=== PATIENT | male | born 1985 | race Caucasian/White ===

== ENCOUNTER 2017-10-26 08:33 | Emergency (ER) | payer BC ==
[~2017-10-26] VITALS: Ht 182.9 cm; Wt 104.3 kg
[~2017-10-26 08:33] MED LIST: Keflex500 MG PO
[2017-10-26] MEDS ORDERED: LISI5 PO (08:45)
[2017-10-26] MEDS ORDERED: Amoxicillin500 MG PO (09:14)
[2017-10-26] MEDS ORDERED: IBUP800 PO (09:14)
[2017-10-26] MEDS ORDERED: NYST237S PO (09:14)
[2018-08-17] MEDS ORDERED: Norco 5-325 Ta1 EACH PO (10:24)
== END 2017-10-26 09:17 | disposition home or self-care (01) ==
LOC: ER 08:33
DX: K02.9 Dental caries, unspecified (principal); K03.81 Cracked tooth; I10 Essential (primary) hypertension; F17.210 Nicotine dependence, cigarettes, uncomplicated; Z79.899 Other long term (current) drug therapy
CPT/HCPCS: 99283

== ENCOUNTER 2018-12-11 17:29 | Emergency (ER) | payer OTHER ==
[~2018-12-11] VITALS: Ht 185.4 cm; Wt 108.9 kg
[~2018-12-11 17:29] MED LIST changes: +Amoxicillin500 MG PO; +IBUP800 PO; +LISI5 PO; +NYST237S PO; +Norco 5-325 Ta1 EACH PO
[2018-12-11] MEDS ORDERED: Cleocin HCl300 MG PO (18:57)
== END 2018-12-11 19:24 | disposition home or self-care (01) ==
LOC: ER 17:29
DX: L02.413 Cutaneous abscess of right upper limb (principal); F17.200 Nicotine dependence, unspecified, uncomplicated
CPT/HCPCS: 10060; 99282-25

== ENCOUNTER 2019-01-18 21:39 | Emergency (ER) | payer OTHER ==
[~2019-01-18] VITALS: Ht 185.4 cm; Wt 113.4 kg
[~2019-01-18 21:39] MED LIST changes: +Cleocin HCl300 MG PO
[2019-01-18] MEDS ORDERED: SUBOXONE (21:54)
[2019-01-18] MEDS ORDERED: CEPH500 PO (23:02)
== END 2019-01-18 23:10 | disposition home or self-care (01) ==
LOC: ER 21:39
DX: S61.412A Laceration without foreign body of left hand, initial encounter (principal); F17.210 Nicotine dependence, cigarettes, uncomplicated; Z79.899 Other long term (current) drug therapy; W08.XXXA Fall from other furniture, initial encounter
CPT/HCPCS: 12002; 99282-25

== ENCOUNTER 2019-03-31 17:03 | Inpatient (IN) | payer OTHER ==
[~2019-03-31] VITALS: Ht 185.4 cm; Wt 105.2 kg
[~2019-03-31 17:03] MED LIST changes: +CEPH500 PO; +SUBOXONE
[2019-03-31 17:35] LABS: BASOPHILS ABSOLUTE AUTO 0.08 K/mm3 (0.00-0.23); BASOPHILS PERCENT AUTO 1 % (0-2); EOSINOPHILS ABSOLUTE AUTO 0.22 K/mm3 (0.00-0.68); EOSINOPHILS PERCENT AUTO 1 % (0-6); Hematocrit 38.8 % (37.0-53.0); Hemoglobin 12.9 g/dL (13.5-17.5); IMMATURE GRAN ABSOLUTE AUTO 0.07 K/mm3 (0.00-0.10); IMMATURE GRAN PERCENT AUTO 0 % (0-1); LYMPHOCYTES ABSOLUTE AUTO 2.73 K/mm3 (0.84-5.20); LYMPHOCYTES PERCENT AUTO 17 % (21-46); MONOCYTES ABSOLUTE AUTO 1.38 K/mm3 (0.16-1.47); MONOCYTES PERCENT AUTO 9 % (4-13); Mean Corpuscular HGB 29.4 pg (26.0-34.0); Mean Corpuscular HGB Conc 33.2 g/dL (31.5-36.5); Mean Corpuscular Volume 88 fL (80-100); NEUTROPHILS ABSOLUTE AUTO 11.56 K/mm3 (1.96-9.15); NEUTROPHILS PERCENT AUTO 72 % (41-73); Platelet Count 344 K/mm3 (150-400); RDW Coefficient Variation 12.2 % (11.7-14.2); RDW Standard Deviation 39.8 fL (35.1-46.3); Red Blood Cell Count 4.39 M/mm3 (4.30-5.90); White Blood Cell Count 16.04 K/mm3 (4.00-11.30)
[2019-03-31 17:54] LABS: Alanine Aminotransfer (ALT/SGP 28 U/L (12-78); Albumin, Blood 3.9 g/dL (3.4-5.0); Alk Phos 106 U/L (50-136); Anion Gap 7 mmol/L (6-16); Aspartate Aminotrans (AST/SGOT 20 U/L (12-37); Bilirubin, Total 0.8 mg/dL (0.1-1.0); Blood Urea Nitrogen 9 mg/dL (8-24); Bun/Creatinine Ratio 13.8 (12.0-20.0); CO2, Blood 27 mmol/L (21-32); Calcium, Blood 9.6 mg/dL (8.5-10.1); Chloride, Blood 100 mmol/L (98-108); Creatinine, Blood 0.65 mg/dL (0.60-1.20); Globulin, Blood 3.8 g/dL (2.2-4.0); Glomerular Filtration Rate >60 (60-); Glucose, Blood 99 mg/dL (70-99); Potassium, Blood 3.2 mmol/L (3.5-5.5); Sodium, Blood 134 mmol/L (136-145); Total Protein, Blood 7.7 g/dL (6.4-8.2)
[2019-04-01 04:56] LABS: BASOPHILS ABSOLUTE AUTO 0.05 K/mm3 (0.00-0.23); BASOPHILS PERCENT AUTO 0 % (0-2); EOSINOPHILS ABSOLUTE AUTO 0.27 K/mm3 (0.00-0.68); EOSINOPHILS PERCENT AUTO 2 % (0-6); Hematocrit 35.9 % (37.0-53.0); Hemoglobin 11.9 g/dL (13.5-17.5); IMMATURE GRAN ABSOLUTE AUTO 0.05 K/mm3 (0.00-0.10); IMMATURE GRAN PERCENT AUTO 0 % (0-1); LYMPHOCYTES ABSOLUTE AUTO 2.68 K/mm3 (0.84-5.20); LYMPHOCYTES PERCENT AUTO 20 % (21-46); MONOCYTES ABSOLUTE AUTO 1.13 K/mm3 (0.16-1.47); MONOCYTES PERCENT AUTO 9 % (4-13); Mean Corpuscular HGB 29.6 pg (26.0-34.0); Mean Corpuscular HGB Conc 33.1 g/dL (31.5-36.5); Mean Corpuscular Volume 89 fL (80-100); Mean Platelet Volume 9.9 fL (9.1-12.4); NEUTROPHILS ABSOLUTE AUTO 9.06 K/mm3 (1.96-9.15); NEUTROPHILS PERCENT AUTO 69 % (41-73); Platelet Count 307 K/mm3 (150-400); RDW Coefficient Variation 12.3 % (11.7-14.2); RDW Standard Deviation 40.5 fL (35.1-46.3); Red Blood Cell Count 4.02 M/mm3 (4.30-5.90); White Blood Cell Count 13.24 K/mm3 (4.00-11.30)
--- NOTE | 2019-04-01 06:40 | NUR ---
SHIFT SUMMARY PT WAS A NEW ADMIT DURING THE NIGHT, ARRIVING ON THE FLOOR AT 2300. HE WAS ADMITTED FOR LLE CELLULITIS AFTER A DOG BITE. HE IS 34 Y/O, A&O X 4, AND ABLE TO AMBULATE INDEPENDENTLY TO THE BATHROOM. PT REPORTED PAIN IN HIS L LEG, AND WAS MEDICATED X2 WITH PRN FENTANYL. NO COMPLAINTS OF NAUSEA OR SOB. VITALS REMAINED STABLE. NO OTHER ACUTE CHANGES IN PT CONDITION NOTED. WILL CONTINUE TO MONITOR AND TREAT PER EMAR.
--- NOTE | 2019-04-01 07:40 | NUR ---
PT PLEASANT COOP A/O. STATES PAIN 9 AND WOULD BE OKAY WITH 5. STATES FENTANYL LAST ONLY SHORT TIME. DISCUSSED LONGER ACTING PO MEDS. HE AGREES IS BETTER. WILL DISCUSS WITH H/R GRAYSON, NO MURMER NOTED. NO TELE. LUNGS CLEAR, RESP EASY, UNLABORED. ON R.A. DISCUSSED QUITTING SMOKEING. NOT READY AT THIS TIME. BT X4 LAST BM YEST. VOIDS PER BATHROOM. INDEPENDANT IN ROOM. GOES OUT TO SMOKE REGULARLY. BED IN LOW POSITION, CALL LITE IN REACH, CALLS APPROP
[2019-04-01 07:42] LABS: Anion Gap 5 mmol/L (6-16); Blood Urea Nitrogen 10 mg/dL (8-24); Bun/Creatinine Ratio 14.1 (12.0-20.0); CO2, Blood 29 mmol/L (21-32); Calcium, Blood 8.5 mg/dL (8.5-10.1); Chloride, Blood 107 mmol/L (98-108); Creatinine, Blood 0.71 mg/dL (0.60-1.20); Glomerular Filtration Rate >60 (60-); Glucose, Blood 121 mg/dL (70-99); Magnesium, Blood 2.2 mg/dL (1.6-2.4); Potassium, Blood 3.5 mmol/L (3.5-5.5); Sodium, Blood 141 mmol/L (136-145)
--- NOTE | 2019-04-01 16:14 | NUR ---
PT PLEASANT TODAY. HAS LEFT NOTES ANY TIME OUT TO SMOKE. HAS BEEN HERE FOR MEDS REQUESTED. ALWAYS RESPECTFUL. NO OTHER CONCERNS AT THIS TIME. BED IN LOW POSITION, CALL LITE IN REACH, CALLS APPROP
[2019-04-01 22:19] LABS: Vancomycin, Trough 11.4 ug/mL (5.0-10.0)
[2019-04-02 05:28] LABS: BASOPHILS ABSOLUTE AUTO 0.09 K/mm3 (0.00-0.23); BASOPHILS PERCENT AUTO 1 % (0-2); EOSINOPHILS ABSOLUTE AUTO 0.34 K/mm3 (0.00-0.68); EOSINOPHILS PERCENT AUTO 2 % (0-6); Hematocrit 36.8 % (37.0-53.0); Hemoglobin 11.9 g/dL (13.5-17.5); IMMATURE GRAN ABSOLUTE AUTO 0.04 K/mm3 (0.00-0.10); IMMATURE GRAN PERCENT AUTO 0 % (0-1); LYMPHOCYTES ABSOLUTE AUTO 3.59 K/mm3 (0.84-5.20); LYMPHOCYTES PERCENT AUTO 25 % (21-46); MONOCYTES ABSOLUTE AUTO 0.94 K/mm3 (0.16-1.47); MONOCYTES PERCENT AUTO 7 % (4-13); Mean Corpuscular HGB Conc 32.3 g/dL (31.5-36.5); Mean Corpuscular Volume 90 fL (80-100); Mean Platelet Volume 10.3 fL (9.1-12.4); NEUTROPHILS ABSOLUTE AUTO 9.14 K/mm3 (1.96-9.15); NEUTROPHILS PERCENT AUTO 65 % (41-73); Platelet Count 347 K/mm3 (150-400); RDW Coefficient Variation 12.4 % (11.7-14.2); RDW Standard Deviation 40.8 fL (35.1-46.3); White Blood Cell Count 14.14 K/mm3 (4.00-11.30)
[2019-04-02 05:44] LABS: Anion Gap 7 mmol/L (6-16); Blood Urea Nitrogen 6 mg/dL (8-24); Bun/Creatinine Ratio 7.8 (12.0-20.0); CO2, Blood 27 mmol/L (21-32); Chloride, Blood 108 mmol/L (98-108); Creatinine, Blood 0.77 mg/dL (0.60-1.20); Glomerular Filtration Rate >60 (60-); Glucose, Blood 102 mg/dL (70-99); Potassium, Blood 3.7 mmol/L (3.5-5.5); Sodium, Blood 142 mmol/L (136-145)
--- NOTE | 2019-04-02 12:15 | NUR ---
UNABLE TO LOCATE PATIENT FOR ANTIBIOTIC ADMINISTRATION
--- NOTE | 2019-04-02 12:55 | NUR ---
UNABLE TO LOCATE PATIENT
--- NOTE | 2019-04-02 13:21 | NUR ---
UNABLE TO LOCATE PATIENT
--- NOTE | 2019-04-02 14:05 | NUR ---
PT RETURNED TO ROOM, SPOKE WITH DR. RAMOS THEN STATES "I HAVE TO GO TO MY CAR AND ABRUPTLY LEFT THE ROOM" STATES "I'LL BE BACK IN 15-20 MINS"
--- NOTE | 2019-04-02 18:41 | NUR ---
SHIFT SUMMARY [employer] INDEPENDENT. SPOKEN WITH ABOUT KEEPING VISITS OUTSIDE NOT LONGER THAN 45MINS. EATING WELL. VOMITING X1 THIS A.M. C/O PAIN TO LLE PO MEDS EFFECTIVE. AFEBRILE VSS.
[2019-04-02 22:00] LABS: Vancomycin, Trough 16.9 ug/mL (5.0-10.0)
--- NOTE | 2019-04-03 06:05 | NUR ---
SHIFT SUMMARY PT ADMITTED FOR SEPSIS. FULL CODE. REGULAR DIET. CELLULITIS TO L LEG THAT PT STATES STARTED AFTER A DOG BITE THAT OCCURRED 2 WEEKS AGO. PT ALSO HAS SWELLING AND DRAINAGE TO THE LEFT ELBOW THAT PT SATED HAPPENED AFTER A BEE STING. THE PT REPORTED THAT THE ELBOW DRAINED A VERY LARGE AMOUNTH OF GREENISH WHITE FLUID THAT HAD A BAD ODOR. THIS NURSE DID NOT WITNESS ANY DRAINAGE THE PT STATED THAT HE SQUEEZED IT WHILE IN THE BATHROOM. THE PT REPORTED THAT THE ELBOW FELT MUCH BETTER FOLLOWING THE DRAINAGE. 20G IV TO R FA. INDEPENDENT IN ROOM. TAKES MEDICATION WHOLE. PT DID VOMIT X2 YESTERDAY, CALL TO HOSPITALIST WHO GAVE ORDER FOR ZOFRAN, ADMINISTERED X1 AND PT STATED FEELING VERY RELIEVED. THE PT HAS APPEARED TO SLEEP COMFORTABLY MOST OF THE NIGHT WITH NO APPARENT SIGNS OF ACUTE DISTRESS. ABLE TO MAKE NEEDS KNOWN AND CALL LIGHT IN REACH.
--- NOTE | 2019-04-03 18:21 | NUR ---
NO ACUTE CHANGES TO PATIENT. HE CONTINUES TO GO OUT TO SMOKE AND GET HIS IV ABX ORDERED. HE IS FRIENDLY WITH STAFF AND COMPLIANT WITH ALL CARES. NO ISSUES THIS SHIFT.
--- NOTE | 2019-04-04 04:06 | NUR ---
SHIFT SUMMARY NO APPARENT ACUTE CHANGES NOTED SO FAR THIS SHIFT. PT STATED THAT LEFT ELBOW "EXPLODED" AGAIN AND BEGAN TO DRAIN. PT STATED NOT WANTING DRESSING ON AREA BECAUSE PT HAS HAD MANY AND STATES THAT IT IS BETTER TO LEAVE THE OPEN TO DRAIN AND IT MAKES THEM FEEL BETTER. PTS L LEG CELLULITIS APPEARS TO BE SIGNIFICANTLY IMPROVED FROM PREVIOUS NIGHT WITH REDUCE REDNESS, SWELLING, AND HEAT. AREA STILL PINK WITH REDNESS PRIMARILY LOCATED ON THE CALF IN THE GENERAL LOCATION OF THE ABRASIONS FROM THE DOG BITE. MCKENZIE AND FOOT APPEAR TO STILL BE SWOLLEN BUT APPEARS REDUCED AND PINK RATHER THEN RED. THE PT CONTIUES TO GO OUT TO SMOKE AND GIRLFRIEND IN ROOM. CONTINUES TO BE PLEASENT, COOPERATIVE, AND APPROPRIATE. NO APPARENT DRUG SEEKING BEHAVIORS AND DOES NOT APPEAR TO BE UNDER THE INFLUENCE OF ANY DRUGS OR ALCOHOL RECIEVED IN REPORT. PT APPEARS TO BE SLEEPING COMFORTABLY AT THIS TIME WITH NO APPARENT SIGNS OF ACUTE DISTRESS. ABLE TO MAKE NEEDS KNOWN AND CALL LIGHT IN REACH.
[2019-04-04 05:56] LABS: BASOPHILS ABSOLUTE AUTO 0.07 K/mm3 (0.00-0.23); BASOPHILS PERCENT AUTO 1 % (0-2); EOSINOPHILS ABSOLUTE AUTO 0.31 K/mm3 (0.00-0.68); EOSINOPHILS PERCENT AUTO 3 % (0-6); Hematocrit 37.9 % (37.0-53.0); Hemoglobin 12.1 g/dL (13.5-17.5); IMMATURE GRAN ABSOLUTE AUTO 0.03 K/mm3 (0.00-0.10); IMMATURE GRAN PERCENT AUTO 0 % (0-1); LYMPHOCYTES ABSOLUTE AUTO 2.76 K/mm3 (0.84-5.20); LYMPHOCYTES PERCENT AUTO 27 % (21-46); MONOCYTES ABSOLUTE AUTO 0.65 K/mm3 (0.16-1.47); MONOCYTES PERCENT AUTO 6 % (4-13); Mean Corpuscular HGB Conc 31.9 g/dL (31.5-36.5); Mean Corpuscular Volume 91 fL (80-100); Mean Platelet Volume 10.3 fL (9.1-12.4); NEUTROPHILS ABSOLUTE AUTO 6.33 K/mm3 (1.96-9.15); NEUTROPHILS PERCENT AUTO 62 % (41-73); Platelet Count 368 K/mm3 (150-400); RDW Coefficient Variation 12.2 % (11.7-14.2); RDW Standard Deviation 41.1 fL (35.1-46.3); Red Blood Cell Count 4.17 M/mm3 (4.30-5.90); White Blood Cell Count 10.15 K/mm3 (4.00-11.30)
[2019-04-04 06:14] LABS: Albumin, Blood 3.3 g/dL (3.4-5.0); Anion Gap 6 mmol/L (6-16); Blood Urea Nitrogen 5 mg/dL (8-24); Bun/Creatinine Ratio 6.8 (12.0-20.0); CO2, Blood 29 mmol/L (21-32); Calcium, Blood 8.7 mg/dL (8.5-10.1); Chloride, Blood 107 mmol/L (98-108); Creatinine, Blood 0.74 mg/dL (0.60-1.20); Glomerular Filtration Rate >60 (60-); Glucose, Blood 102 mg/dL (70-99); Phosphorus, Blood 3.5 mg/dL (2.5-4.9); Potassium, Blood 3.6 mmol/L (3.5-5.5); Sodium, Blood 142 mmol/L (136-145)
--- NOTE | 2019-04-04 15:59 | NUR ---
HE IS OUTSIDE FOR THE 2ND TIME TODAY TO SMOKE. HE HAS SLEPT OR EATEN. HE SAYS HE HAD A BM LAST NIGHT. HE DENIES ANY DIFFICULTY VOIDING. NO FEVER. IV ANTIBIOTICS CONTINUE.
--- NOTE | 2019-04-04 17:42 | NUR ---
HE IS BACK FROM SMOKING. HE HAS RECEIVED NORCO X1 TODAY. WOUND UNCHANGED THROUGHOUT THE DAY, BUT NIGHT NURSE SAID IT LOOKED BETTER LAST NIGHT THAN THE NIGHT BEFORE.IV ANTIBIOTICS CONTINUE. NO FEVER.
--- NOTE | 2019-04-05 05:23 | NUR ---
SHIFT SUMMARY PT SLEPT WELL DURING THE NIGHT. NEW IV PLACED IN RIGHT HAND DUE TO INFILTRATION OF OTHER IV. PT MEDICATED X1 FOR PAIN THIS SHIFT. NO ACUTE EVENTS OR CHANGES NOTED, WILL CONTINUE TO MONITOR.
[2019-04-05] MEDS ORDERED: ACET325 PO (09:34)
[2019-04-05] MEDS ORDERED: AMLO5 (09:36)
[2019-04-05] MEDS ORDERED: Norco 5-325 Ta1 EACH PO (09:37)
[2019-04-05] MEDS ORDERED: Colace100 MG (09:37)
[2019-04-05] MEDS ORDERED: Augmentin 875-1 EACH PO (09:38)
--- NOTE | 2019-04-05 10:37 | NUR ---
DISCHARGED TO HOME WITH BELONGINGS, INSTRUCTIONS AND RX'S AT 0955. HE HAS NO COMPLAINTS EXCEPT FOR PAIN IN HIS L ANKLE AFTER HE WALKED OUT TO SMOKE THIS MORNING. DRESSING PUT OVER L LEG WOUND AT TIME OF ASSESSMENT THIS AM.
== END 2019-04-05 09:57 | disposition home or self-care (01) | DRG 872 ==
LOC: ER 17:03 → MEDS 17:04 → ER 22:03 → MEDS 22:03 → ENPENDDIS 04-05 08:12 → MEDS 04-05 09:57
PROVIDERS: Emergency Medicine; Internal Medicine; ADMIT Hospitalist
DX: A41.9 Sepsis, unspecified organism (principal); L03.115 Cellulitis of right lower limb; L03.114 Cellulitis of left upper limb; F17.210 Nicotine dependence, cigarettes, uncomplicated; E66.3 Overweight; R03.0 Elevated blood-pressure reading, without diagnosis of hypertension; Z68.30 Body mass index [BMI] 30.0-30.9, adult; S81.851D Open bite, right lower leg, subsequent encounter; W54.0XXD Bitten by dog, subsequent encounter
CPT/HCPCS: 36415; 73701; 80048; 80053; 80069; 80202; 83605; 83735; 85025; 87040; 93971; 96365-59; 96375-59; 99284-25; A9270; A9270-GY; J1170; J1650; J2405; J2543; J3010; J3370; J7030; J7040; J7050; Q9967

== ENCOUNTER 2019-06-22 10:40 | Emergency (ER) | payer OTHER ==
[~2019-06-22] VITALS: Ht 185.4 cm; Wt 102.1 kg
[~2019-06-22 10:40] MED LIST changes: +ACET325 PO; +AMLO5; +Augmentin 875-1 EACH PO; +Colace100 MG
[2019-06-22 11:33] LABS: BASOPHILS ABSOLUTE AUTO 0.08 K/mm3 (0.00-0.23); BASOPHILS PERCENT AUTO 1 % (0-2); EOSINOPHILS ABSOLUTE AUTO 0.18 K/mm3 (0.00-0.68); EOSINOPHILS PERCENT AUTO 1 % (0-6); Hematocrit 39.4 % (37.0-53.0); IMMATURE GRAN ABSOLUTE AUTO 0.06 K/mm3 (0.00-0.10); IMMATURE GRAN PERCENT AUTO 0 % (0-1); LYMPHOCYTES ABSOLUTE AUTO 2.98 K/mm3 (0.84-5.20); LYMPHOCYTES PERCENT AUTO 22 % (21-46); MONOCYTES ABSOLUTE AUTO 0.99 K/mm3 (0.16-1.47); MONOCYTES PERCENT AUTO 7 % (4-13); Mean Corpuscular Volume 88 fL (80-100); Mean Platelet Volume 9.9 fL (9.1-12.4); NEUTROPHILS ABSOLUTE AUTO 9.23 K/mm3 (1.96-9.15); NEUTROPHILS PERCENT AUTO 68 % (41-73); Platelet Count 431 K/mm3 (150-400); RDW Coefficient Variation 12.9 % (11.7-14.2); RDW Standard Deviation 41.4 fL (35.1-46.3); Red Blood Cell Count 4.48 M/mm3 (4.30-5.90); White Blood Cell Count 13.52 K/mm3 (4.00-11.30)
[2019-06-22 12:00] LABS: Alanine Aminotransfer (ALT/SGP 22 U/L (12-78); Albumin, Blood 3.7 g/dL (3.4-5.0); Albumin/Globulin Ratio 0.8 (0.8-1.8); Alk Phos 111 U/L (50-136); Anion Gap 5 mmol/L (6-16); Aspartate Aminotrans (AST/SGOT 20 U/L (12-37); Bilirubin, Total 0.2 mg/dL (0.1-1.0); Blood Urea Nitrogen 9 mg/dL (8-24); Bun/Creatinine Ratio 14.1 (12.0-20.0); CO2, Blood 25 mmol/L (21-32); Calcium, Blood 9.4 mg/dL (8.5-10.1); Chloride, Blood 106 mmol/L (98-108); Creatinine, Blood 0.64 mg/dL (0.60-1.20); Globulin, Blood 4.5 g/dL (2.2-4.0); Glomerular Filtration Rate >60 (60-); Glucose, Blood 79 mg/dL (70-99); Potassium, Blood 4.2 mmol/L (3.5-5.5); Sodium, Blood 136 mmol/L (136-145); Total Protein, Blood 8.2 g/dL (6.4-8.2)
[2019-06-22] MEDS ORDERED: Cephalexin500 MG PO (16:19)
[2019-06-22] MEDS ORDERED: Vibramycin100 MG PO (16:19)
[2019-06-22] MEDS ORDERED: Percocet 5-3251 EACH PO (16:19)
== END 2019-06-22 18:25 | disposition home or self-care (01) ==
LOC: ER 10:40
PROVIDERS: Emergency Medicine
DX: L03.116 Cellulitis of left lower limb (principal); L03.115 Cellulitis of right lower limb; L98.9 Disorder of the skin and subcutaneous tissue, unspecified; S81.852D Open bite, left lower leg, subsequent encounter; W54.0XXD Bitten by dog, subsequent encounter; Z79.899 Other long term (current) drug therapy; F17.200 Nicotine dependence, unspecified, uncomplicated
CPT/HCPCS: 10061; 36415; 73701; 80053; 85025; 86140; 87070; 87075; 87077; 87147; 87186; 87205; 96365-59; 96375-59; 96376-59; 99284-25; J1170; J2405; J3370; Q9967

== ENCOUNTER 2019-06-26 08:31 | Emergency (ER) | payer OTHER ==
[~2019-06-26] VITALS: Ht 185.4 cm; Wt 101.2 kg
[~2019-06-26 08:31] MED LIST changes: +Cephalexin500 MG PO; +Percocet 5-3251 EACH PO; +Vibramycin100 MG PO
[2019-06-26 09:07] LABS: BASOPHILS ABSOLUTE AUTO 0.09 K/mm3 (0.00-0.23); BASOPHILS PERCENT AUTO 1 % (0-2); EOSINOPHILS ABSOLUTE AUTO 0.28 K/mm3 (0.00-0.68); EOSINOPHILS PERCENT AUTO 3 % (0-6); Hematocrit 41.6 % (37.0-53.0); Hemoglobin 13.6 g/dL (13.5-17.5); IMMATURE GRAN ABSOLUTE AUTO 0.02 K/mm3 (0.00-0.10); IMMATURE GRAN PERCENT AUTO 0 % (0-1); LYMPHOCYTES ABSOLUTE AUTO 2.34 K/mm3 (0.84-5.20); LYMPHOCYTES PERCENT AUTO 25 % (21-46); MONOCYTES ABSOLUTE AUTO 0.43 K/mm3 (0.16-1.47); MONOCYTES PERCENT AUTO 5 % (4-13); Mean Corpuscular HGB 28.8 pg (26.0-34.0); Mean Corpuscular HGB Conc 32.7 g/dL (31.5-36.5); Mean Corpuscular Volume 88 fL (80-100); Mean Platelet Volume 9.6 fL (9.1-12.4); NEUTROPHILS ABSOLUTE AUTO 6.36 K/mm3 (1.96-9.15); NEUTROPHILS PERCENT AUTO 67 % (41-73); Platelet Count 476 K/mm3 (150-400); RDW Coefficient Variation 12.6 % (11.7-14.2); RDW Standard Deviation 40.8 fL (35.1-46.3); Red Blood Cell Count 4.73 M/mm3 (4.30-5.90); White Blood Cell Count 9.52 K/mm3 (4.00-11.30)
[2019-06-26 09:30] LABS: Alanine Aminotransfer (ALT/SGP 31 U/L (12-78); Albumin, Blood 3.6 g/dL (3.4-5.0); Albumin/Globulin Ratio 0.8 (0.8-1.8); Alk Phos 108 U/L (50-136); Anion Gap 8 mmol/L (6-16); Aspartate Aminotrans (AST/SGOT 21 U/L (12-37); Bilirubin, Total 0.2 mg/dL (0.1-1.0); Blood Urea Nitrogen 7 mg/dL (8-24); CO2, Blood 25 mmol/L (21-32); Calcium, Blood 9.5 mg/dL (8.5-10.1); Chloride, Blood 108 mmol/L (98-108); Creatinine, Blood 0.64 mg/dL (0.60-1.20); Globulin, Blood 4.5 g/dL (2.2-4.0); Glomerular Filtration Rate >60 (60-); Glucose, Blood 113 mg/dL (70-99); Potassium, Blood 3.7 mmol/L (3.5-5.5); Sodium, Blood 141 mmol/L (136-145); Total Protein, Blood 8.1 g/dL (6.4-8.2)
[2019-06-26] MEDS ORDERED: Percocet 7.5-31 EACH PO (11:54)
[2019-06-26] MEDS ORDERED: IBUP800 PO (11:54)
== END 2019-06-26 12:01 | disposition home or self-care (01) ==
LOC: ER 08:31
PROVIDERS: Physician Assistant
DX: L03.115 Cellulitis of right lower limb (principal); L03.116 Cellulitis of left lower limb; L02.415 Cutaneous abscess of right lower limb; L02.416 Cutaneous abscess of left lower limb; F17.210 Nicotine dependence, cigarettes, uncomplicated
CPT/HCPCS: 36415; 73701; 80053; 85025; 85651; 86141; 96374-59; 96375-59; 96376-59; 99284-25; J1170; J1885; J2405; Q9967

== ENCOUNTER 2019-11-12 10:10 | Emergency (ER) | payer OTHER ==
[~2019-11-12] VITALS: Ht 185.4 cm; Wt 97.5 kg
[~2019-11-12 10:10] MED LIST changes: +Percocet 7.5-31 EACH PO
[2019-11-12] MEDS ORDERED: NORCO 10-325 T1 EACH PO (11:19)
[2019-11-12] MEDS ORDERED: Cleocin HCl150 MG PO (11:19)
[2019-11-12] MEDS ORDERED: Mupirocin22 GM TOP (11:19)
[2019-11-12] MEDS ORDERED: IBUP800 PO (11:19)
== END 2019-11-12 11:42 | disposition home or self-care (01) ==
LOC: ER 10:10
DX: L03.211 Cellulitis of face (principal); F17.210 Nicotine dependence, cigarettes, uncomplicated; Z86.14 Personal history of Methicillin resistant Staphylococcus aureus infection
CPT/HCPCS: 99283

== ENCOUNTER 2020-11-25 08:31 | Emergency (ER) | payer OTHER ==
[~2020-11-25] VITALS: Ht 185.4 cm; Wt 90.7 kg
[~2020-11-25 08:31] MED LIST changes: +Cleocin HCl150 MG PO; +Mupirocin22 GM TOP; +NORCO 10-325 T1 EACH PO
[2020-11-25] MEDS ORDERED: DOXY100 PO (08:45)
[2020-11-25] MEDS ORDERED: KETO10 PO (08:52)
[2020-11-25] MEDS ORDERED: Cleocin HCl300 MG PO (08:52)
== END 2020-11-25 09:05 | disposition home or self-care (01) ==
LOC: ER 08:31
DX: K04.7 Periapical abscess without sinus (principal); F17.210 Nicotine dependence, cigarettes, uncomplicated; Z88.2 Allergy status to sulfonamides; Z88.1 Allergy status to other antibiotic agents; Z79.899 Other long term (current) drug therapy
CPT/HCPCS: 96372; 99282-25; J1885

== ENCOUNTER 2020-11-27 09:00 | Emergency (ER) | payer OTHER ==
[~2020-11-27] VITALS: Ht 185.4 cm; Wt 106.4 kg
[~2020-11-27 09:00] MED LIST changes: +DOXY100 PO; +KETO10 PO
[2020-11-27 10:30] LABS: BASOPHILS ABSOLUTE AUTO 0.13 K/mm3 (0.00-0.23); BASOPHILS PERCENT AUTO 1 % (0-2); EOSINOPHILS ABSOLUTE AUTO 0.29 K/mm3 (0.00-0.68); EOSINOPHILS PERCENT AUTO 2 % (0-6); Hematocrit 39.3 % (37.0-53.0); IMMATURE GRAN ABSOLUTE AUTO 0.06 K/mm3 (0.00-0.10); IMMATURE GRAN PERCENT AUTO 0 % (0-1); LYMPHOCYTES ABSOLUTE AUTO 3.79 K/mm3 (0.84-5.20); LYMPHOCYTES PERCENT AUTO 27 % (21-46); MONOCYTES ABSOLUTE AUTO 0.86 K/mm3 (0.16-1.47); MONOCYTES PERCENT AUTO 6 % (4-13); Mean Corpuscular HGB 29.1 pg (26.0-34.0); Mean Corpuscular HGB Conc 33.1 g/dL (31.5-36.5); Mean Corpuscular Volume 88 fL (80-100); Mean Platelet Volume 10.3 fL (9.1-12.4); NEUTROPHILS ABSOLUTE AUTO 9.17 K/mm3 (1.96-9.15); NEUTROPHILS PERCENT AUTO 64 % (41-73); Platelet Count 354 K/mm3 (150-400); RDW Coefficient Variation 13.3 % (11.7-14.2); Red Blood Cell Count 4.47 M/mm3 (4.30-5.90)
[2020-11-27 10:40] LABS: Alanine Aminotransfer (ALT/SGP 22 U/L (12-78); Albumin, Blood 3.7 g/dL (3.4-5.0); Albumin/Globulin Ratio 0.9 (0.8-1.8); Alk Phos 114 U/L (50-136); Anion Gap 4 mmol/L (6-16); Aspartate Aminotrans (AST/SGOT 13 U/L (12-37); Bilirubin, Total 0.2 mg/dL (0.1-1.0); Blood Urea Nitrogen 9 mg/dL (8-24); Bun/Creatinine Ratio 12.9 (12.0-20.0); CO2, Blood 29 mmol/L (21-32); Chloride, Blood 106 mmol/L (98-108); Globulin, Blood 3.9 g/dL (2.2-4.0); Glomerular Filtration Rate >60 (60-); Glucose, Blood 94 mg/dL (70-99); Potassium, Blood 4.4 mmol/L (3.5-5.5); Sodium, Blood 139 mmol/L (136-145); Total Protein, Blood 7.6 g/dL (6.4-8.2)
[2020-11-27] MEDS ORDERED: AMOCLA875 PO (12:59)
[2020-11-27] MEDS ORDERED: TRAM50 PO (12:59)
== END 2020-11-27 13:28 | disposition home or self-care (01) ==
LOC: ER 09:00
PROVIDERS: Physician Assistant
DX: K04.7 Periapical abscess without sinus (principal); L03.211 Cellulitis of face; F17.210 Nicotine dependence, cigarettes, uncomplicated; Z88.2 Allergy status to sulfonamides; Z88.1 Allergy status to other antibiotic agents; Z79.899 Other long term (current) drug therapy
CPT/HCPCS: 36415; 70491; 80053; 83605; 85025; 87040; 96365-59; 96366; 96375-59; 99284-25; A9270; J1885; J3370; J7050; Q9967